=== PATIENT | female | born 1975 | race Caucasian/White ===

== ENCOUNTER 2020-01-13 15:50 | Outpatient (REF) | payer OTHER, SELFPAY ==
[2020-01-14 16:48] LABS: CT PCR NOT DETECTED (Not Detect.); NG PCR NOT DETECTED (Not Detect.)
[2020-01-15 08:45] LABS: BV Int Neg Control Negative (Negative); BV Int Pos Control Positive (Positive)
== END 2020-01-13 15:51 | disposition home or self-care (01) ==
LOC: HO.LAB 15:50
PROVIDERS: Visit Provider Obstetrics & Gynecology
DX: N89.8 Other specified noninflammatory disorders of vagina (principal); R10.2 Pelvic and perineal pain
CPT/HCPCS: 87480; 87491; 87510; 87591; 87660; 99212

== ENCOUNTER 2022-02-22 11:08 | Outpatient (REF) | payer OTHER, SELFPAY ==
--- NOTE | ~2022-02-22 | US_ITS ---
EXAMINATION: US ABDOMEN COMPLETE CLINICAL INFORMATION: Nonalcoholic steatohepatitis. COMPARISON: MRI abdomen with and without contrast 03/13/2018. Ultrasound abdomen complete 01/14/2018. X-ray abdomen KUB 11/08/2016. Ultrasound abdomen limited 07/23/2012. TECHNIQUE: Real-time imaging of the abdominal viscera. FINDINGS: PANCREAS: No abnormal mass or peripancreatic inflammatory change. ABDOMINAL AORTA: The proximal, mid, and distal segments are normal in caliber. INFERIOR VENA CAVA: Visualized portions are normal. LIVER: The liver is normal in size. There is a hyperechoic and heterogeneous appearance to the hepatic parenchyma consistent with fatty infiltration/cirrhosis. Within the left lobe of liver there is a hypoechoic mass measuring 2.8 x 1.0 x 2.8 cm in size. There is no intrahepatic biliary duct dilatation seen. GALLBLADDER: Normal. The gallbladder is physiologically distended without evidence of stones, sludge, polyps, wall thickening or pericholecystic fluid. COMMON BILE DUCT: Normal in caliber measuring 0.2 cm in diameter. RIGHT KIDNEY: Within the midpole region there is a 3 mm echogenic focus without ringdown artifact which could represent a nonobstructing calculus versus possible vessel interface or calcified vessel. Within the lower pole there is a 4 mm echogenic focus which may represent a calcified vessel with appearance of some tram tracking and central vascular flow. No hydronephrosis. The kidney measures 11.2 cm in maximum dimension. LEFT KIDNEY: Within the lower pole there is a 4 mm region of increased echotexture which may be related to nonobstructing calculus or a vessel interface. No hydronephrosis. The kidney measures 11.5 cm in maximum dimension. SPLEEN: Enlarged. The spleen measures 13.5 cm in maximum dimension. FREE FLUID: None. ADDITIONAL FINDINGS: There is again noted to be a solid appearing left adrenal gland mass measuring 2.2 x 2.6 x 2.6 cm in size and essentially stable in appearance to previous MRI of 03/13/2018. US/US abdomen complete IMPRESSION: Hepatic mass within the left lobe measuring 2.8 cm in largest dimension, which appears solid and not cystic. In a patient with fatty infiltration of the liver with question cirrhosis a hepatoma cannot be excluded. MRI could be of help in further evaluation. Stable left adrenal gland nodule.
== END 2022-02-22 11:09 | disposition home or self-care (01) ==
LOC: HO.US 11:08
PROVIDERS: Visit Provider Internal Medicine
DX: K75.81 Nonalcoholic steatohepatitis (NASH) (principal)
CPT/HCPCS: 76700

== ENCOUNTER 2022-09-13 10:04 | Outpatient (REF) | payer OTHER, SELFPAY ==
[2022-09-14 13:32] LABS: BV Int Neg Control Negative (Negative); BV Int Pos Control Positive (Positive)
[2022-09-16 05:34] LABS: HPV mRNA E6/E7 rflx Not Detected (Not Detected)
== END 2022-09-13 10:05 | disposition home or self-care (01) ==
LOC: HO.LNP 10:04
PROVIDERS: PCP Internal Medicine; Visit Provider Advanced Practice Midwife
DX: Z01.419 Encounter for gynecological examination (general) (routine) without abnormal findings (principal); N88.8 Other specified noninflammatory disorders of cervix uteri; Z79.899 Other long term (current) drug therapy; Z87.42 Personal history of other diseases of the female genital tract; Z90.711 Acquired absence of uterus with remaining cervical stump; Z90.79 Acquired absence of other genital organ(s); Z90.721 Acquired absence of ovaries, unilateral; Z86.39 Personal history of other endocrine, nutritional and metabolic disease
CPT/HCPCS: 0353U; 87480; 87510; 87624; 87660; 88142

== ENCOUNTER 2022-10-18 08:37 | Outpatient (REF) | payer OTHER, SELFPAY ==
--- NOTE | ~2022-10-18 | MM_ITS ---
EXAMINATION: MM SCREENING DIGITAL BREAST TOMOSYNTHESIS, BILATERAL CLINICAL INFORMATION: Screening. Asymptomatic. The lifetime risk of breast cancer based on the Tyrer-Cuzick Model is 8.2%. COMPARISON: Mammography: 01/14/2018 TECHNIQUE: Digital breast tomosynthesis is performed in both the craniocaudal and mediolateral oblique views along with computer-aided detection (CAD). Synthesized 2D images are generated from the tomosynthesis. FINDINGS: The breasts are heterogeneously dense, which may obscure small masses (ACR BI-RADS breast composition Category c). There are numerous bilateral circumscribed oval isodense masses in both breasts, consistent with multiple benign cysts or fibroadenomas. There are no suspicious masses, suspicious grouped calcifications, or areas of architectural distortion. The parenchymal pattern is stable from prior exams. MM/MM tomosynthesis screening BI IMPRESSION: No mammographic evidence of malignancy in either breast. Multiple circumscribed bilateral isodense masses consistent with multiple cysts or fibroadenomas. These findings are benign. ASSESSMENT: BI-RADS BI-RADS 2 - Benign Findings RECOMMENDATION: Routine annual mammography screening. 1 year F/U This examination should not preclude the clinical evaluation of a suspicious palpable abnormality. This patient's information was entered into a reminder system with a target due date for their next mammogram.
== END 2022-10-18 08:38 | disposition home or self-care (01) ==
LOC: HO.MAMMO 08:37
PROVIDERS: PCP Internal Medicine; Visit Provider Advanced Practice Midwife
DX: Z12.31 Encounter for screening mammogram for malignant neoplasm of breast (principal)
CPT/HCPCS: 77063; 77067

== ENCOUNTER → 2022-10-18 09:00 | Outpatient (BNV) | payer OTHER, SELFPAY | PROVIDERS: PCP Internal Medicine; Visit Provider Radiology Diagnostic Radiology | DX: Z12.31 Encounter for screening mammogram for malignant neoplasm of breast (principal) | CPT/HCPCS: 77063; 77067 ==

== ENCOUNTER 2023-04-18 09:50 | Outpatient (REF) | payer OTHER, SELFPAY ==
[2023-04-18 13:01] LABS: Anion Gap 10 (12-20); Blood Urea Nitrogen 11 mg/dL (9-16); Calcium 9.7 mg/dL (8.4-10.2); Carbon Dioxide 24 mmol/L (22-29); Chloride 106 mmol/L (96-108); Estimated Glomerular Filt Rate > 60; Glucose Random 94 mg/dL (60-115); Potassium 4.4 mmol/L (3.3-5.1); Sodium 136 mmol/L (135-145)
== END 2023-04-18 09:51 | disposition home or self-care (01) ==
LOC: HO.HHCL 09:50
PROVIDERS: Visit Provider Internal Medicine
DX: R53.83 Other fatigue (principal)
CPT/HCPCS: 36415; 80048; 84443

== ENCOUNTER 2023-05-16 10:18 | Outpatient (REF) | payer OTHER, SELFPAY ==
[2023-05-16 12:43] LABS: Alanine Aminotransferase 56 U/L (0-31); Albumin Level 4.4 g/dL (3.5-5.0); Alkaline Phosphatase 72 U/L (39-117); Aspartate Amino Transferase 39 U/L (5-31); Bilirubin Direct 0.1 mg/dL (0.0-0.5); Bilirubin Total 0.4 mg/dL (0.0-1.0); Cholesterol 231 mg/dL (<200); HDL Cholesterol 57 mg/dL (>40); LDL Cholesterol Calculated 139 mg/dL (<100); Total Protein 7.9 g/dL (6.5-8.0); Triglycerides 177 mg/dL (<150)
== END 2023-05-16 10:19 | disposition home or self-care (01) ==
LOC: HO.HHCL 10:18
PROVIDERS: Visit Provider Internal Medicine
DX: R53.83 Other fatigue (principal)
CPT/HCPCS: 36415; 80061; 80076

== ENCOUNTER 2024-10-22 11:53 | Outpatient (REF) | payer OTHER, SELFPAY ==
--- OUTSIDE RECORDS SUMMARY | 2024-10-22 12:45 | XMS_ITS | Encounter Summary ---
Author Organization [facility] Address [address] [place] [address] [address] [place] [address] Care Team Providers Care Rn Circulating Name Role Phone Irene Neumann MD Primary Care Provide r Reason for Visit * Reason Comments Med Refill Encounter Details Date Type Department Care Team ([facility] Contact Info) Description 10/17/2022 Refill [facility] [address] [place] [address] Areli Drake FNP [address] [place] [address] Other specified hypothyroidism Social History Tobacco Use Types Packs/Day Years Used Date Smoking Tobacco: Never Smokeless Tobacco: Never Depression Answer Date Recorded Patient Health Questionnaire-9 Score 7 09/26/2022 Depression Answer Date Recorded Patient Health Questionnaire-2 Score 2 09/26/2022 Comments Unknown Sex and Gender Information Value Date Recorded Sex Assigned at Female 01/09/2022 10:16 AM EDT Legal Sex Female 10:16 AM EDT Gender Identity Female 09/20/2022 8:07 AM EDT Sexual Orientation Straight 01/09/2022 10 :16 AM EDT COVID-19 Exposure Response Date Recorded In the last 10 days, have yo u been in contact with someone who was confirmed or suspected to have Coronavirus/COVID-19? No / Unsure 09/20/2022 7:54 AM EDT documented as of this encounter Plan of Treatment Upcoming Encounters Date Type Department Care Team ([facility] Contact Info) Description 12/17/2024 9:15 AM EDT Office Visit [facility] [address] [place] [address] Irene Neumann MD [address] [place] [address] 03/04/2025 10:00 AM EST Office Visit [facility] OPTOM[facility]RY [address] [place] [address] Scott, Ly, OD [address] [place] [address] 03/18/2025 8:00 AM EST Office Visit [facility] ADULT DENTAL [address] [place] [address] Caitlyn, Chanell [address] [place] [address] documented as of this encounter Visit Diagnoses Diagnosis Other specified hypothyroidism documented in this encounter Additional Health Concerns Assessment Noted Time PHQ-9 Depression Total Score: 7 09/27/19 23 2:42 PM EDT documented as of this encounter Care Teams Rn Circulating Relationship Specialty Start Date End Date Irene Neumann MD [address] [place] [address] PCP - General Family Medicine 11/21/17 documented as of this encounter
[2024-10-22 13:36] LABS: MANUAL DIFF FLAG NO
[2024-10-22 13:43] LABS: Hematocrit 38.9 % (37.0-47.0); Hemoglobin 12.5 g/dl (12.0-16.0); Imm Gran Abs Auto 0.03 X10*3/uL (0.00-0.03); Imm Gran Pct Auto 0.6 % (0.0-0.4); Lymphocytes Absolute Auto 1.6 X10*3/uL (1.2-4.9); Mean Corpuscular HGB Conc 32.1 g/dl (31.0-35.0); Mean Corpuscular Hemoglobin 28.5 pg (27.0-33.0); Mean Corpuscular Volume 88.8 fL (80.0-98.0); NRBC Abs Auto 0.000 X10*3/uL (0.0-0.012); NRBC Pct Auto 0.0 /100WBC (0.0-0.2); Platelet Count 156 X10*3/uL (160-400); Red Blood Count 4.38 X10*6/uL (4.20-5.50); White Blood Count 5.5 X10*3/uL (4.8-10.8)
[2024-10-22 14:21] LABS: Alanine Aminotransferase 84 U/L (0-31); Albumin Level 4.2 g/dL (3.5-5.0); Alkaline Phosphatase 72 U/L (39-117); Anion Gap 12 (12-20); Aspartate Amino Transferase 56 U/L (5-31); Blood Urea Nitrogen 16 mg/dL (9-16); Calcium 9.1 mg/dL (8.4-10.2); Carbon Dioxide 27 mmol/L (22-29); Chloride 104 mmol/L (96-108); Cholesterol 241 mg/dL (<200); Estimated Glomerular Filt Rate > 60; HDL Cholesterol 74 mg/dL (>40); Potassium 4.5 mmol/L (3.3-5.1); Sodium 138 mmol/L (135-145); Total Protein 7.5 g/dL (6.5-8.0); Triglycerides 81 mg/dL (<150)
[2024-10-23 04:08] LABS: HIV Num 1 0.05 S/CO (0.00-0.99); ~HepC Num1 0.09 S/CO (0.00-0.79); ~Hepatitis C Antibody Nonreactive (Nonreactive)
== END 2024-10-22 11:54 | disposition home or self-care (01) ==
LOC: HO.HHCL 11:53
PROVIDERS: PCP Internal Medicine; Visit Provider Internal Medicine
DX: Z12.11 Encounter for screening for malignant neoplasm of colon (principal); Z11.59 Encounter for screening for other viral diseases; Z11.4 Encounter for screening for human immunodeficiency virus [HIV]; E66.811 Obesity, class 1; Z68.31 Body mass index [BMI] 31.0-31.9, adult
CPT/HCPCS: 36415; 80053; 80061; 82306; 84443; 85025; 86803; 87389

== ENCOUNTER 2024-12-31 10:36 | Outpatient (REF) | payer OTHER, SELFPAY ==
--- NOTE | ~2024-12-31 | US_ITS ---
EXAMINATION: US COMPLETE ABDOMEN WITH LIVER ELASTOGRAPHY CLINICAL INFORMATION: Persistent elevated LFTs COMPARISON: February 22, 2022 ultrasound and MRI March 13, 2018 TECHNIQUE: Real-time imaging of the abdominal viscera. Noninvasive ultrasound liver fibrosis assessment is performed using Daisha ElastPQ point quantification shear wave elastography (pSWE) with a C5-2 MHz transducer. Multiple elastography samples are obtained. FINDINGS: PANCREAS: The visualized pancreatic head and body are normal in appearance. The remainder of the pancreas is obscured from visualization by the overlying bowel gas. ABDOMINAL AORTA: No aortic aneurysm is seen. INFERIOR VENA CAVA: Visualized portions are normal. LIVER: There is a circumscribed hypoechoic lesion without increased through transmission within the left lateral segment of the liver measuring 2.3 x 1.2 x 2.2 cm, previously 2.8 x 1.0 x 2.8 cm. Otherwise, the liver has a coarse echotexture and is mildly hyperechoic. The right lobe measures 15 cm in length. The left lobe measures 8 cm in length. The main portal vein is patent with normal directional flow and a continuous venous waveform. Shear wave liver elastography median stiffness is 1.7 m/s (reference: normal median stiffness is 1.3 m/s or less). IQR/median stiffness to assess sampling precision is 0.04 (reference: good quality data set is IQR/median stiffness of 0.15 or less). GALLBLADDER: The gallbladder is physiologically distended without evidence of stones, sludge, polyps, wall thickening or pericholecystic fluid. COMMON BILE DUCT: Normal in caliber measuring 0.3 cm in diameter. RIGHT KIDNEY: No hydronephrosis. No renal calculi or focal parenchymal lesions. The kidney measures 11 cm in maximum dimension. LEFT KIDNEY: No hydronephrosis. No focal parenchymal lesions were demonstrated. There is a 3 mm echogenic focus with posterior acoustic shadowing in the lower pole consistent with a stone. There is a second measures area in the lower pole measuring 3 x 6 mm without posterior acoustic shadowing likely representing echogenic hilar fat. The kidney measures 11.5 cm in maximum dimension. There is a hypoechoic suprarenal mass measuring 3.1 x 2.2 x 2.7 cm that was present on prior MRI and ultrasound that was previously demonstrated represent a lipid rich adrenal adenoma. On prior MRI, it measures 2.5 x 2.0 x 2.4 cm. SPLEEN: Unremarkable. The spleen measures 12.6 cm in maximum dimension. FREE FLUID: None seen. US/US abdomen comp w elastography IMPRESSION: 1. There is a coarsely echogenic liver consistent with hepatic steatosis and/or underlying hepatic parenchymal disease. There is a focal hypoechoic lesion in the left lobe that could represent focal sparing or a solid mass. Follow-up MRI liver without and with IV contrast. It was not adequately demonstrated on MRI March 13, 2018. 2. Liver elastography: Measurements are suggestive of compensated advanced chroniic liver disease but need further test for confirmation. Median stiffness measures 1.7 m/s. Study quality was good. Enlarging left lipid rich adrenal adenoma. 3 mm stone is present in the lower left kidney. REFERENCE: Society of Radiologists in Ultrasound Liver Stiffness Thresholds (2020): LIVER STIFFNESS THRESHOLDS: *Liver Stiffness equal or less than 1.3 m/s: High probability of being normal. *Liver Stiffness less than 1.7 m/s: In the absence of other known clinical signs, rules out compensated advanced chronic liver disease. *Liver Stiffness 1.7-2.1 m/s: Suggestive of compensated advanced chronic liver disease but need further test for confirmation. *Liver Stiffness over 2.1 m/s: Rules in compensated advanced chronic liver disease. *Liver Stiffness over 2.4 m/s: Suggestive of clinically significant portal hypertension. QUALITY OF DATA SET: *IQR/Median value equal or less than 0.15 implies a quality data set. *IQR/Median value over 0.15 implies a poor quality data set. SIGNIFICANT CHANGE FROM PRIOR EXAM: Significant change if liver stiffness measurement is 10% or greater from prior exam. OTHER CONSIDERATIONS: The stage of liver fibrosis may be overestimated in the setting of acute hepatitis, liver inflammation, elevated liver function tests, hepatic vascular congestion, obstructive cholestasis, non-fasting state, and infiltrative diseases such as amyloidosis and lymphoma. In some patients with NAFLD, the liver stiffness thresholds for compensated advanced chronic liver disease may be lower. In causes other than viral hepatitis and NAFLD, liver stiffness thresholds are not well established. Electronically signed by: Michael Cook MD 12/31/2024 02:28 PM EDT
--- OUTSIDE RECORDS SUMMARY | 2024-12-31 13:32 | XMS_ITS | Encounter Summary ---
Author Organization [facility] Address [address] [place] [address] [address] [place] [address] Care Team Providers Care Wrap Turner Name Role Phone Irene Neumann MD Primary Care Provide r Encounter Details Date Type Department Care Team (Late Contact Info) Description 02/28/2022 Orders Only [facility] [address] [place] [phone] Sherly Snider MD [address] [place] [phone] Liver mass, left lobe (Primary Dx) Social History Tobacco Use Types Packs/Day Years Used Date Smoking Tobacco: Never Assessed Comments Unknown Sex and Gender Information Value Date Recorded Sex Assigned at Female 01/09/2022 10:16 AM EDT Legal Sex Female 10:16 AM EDT Gender Identity Female 09/20/2022 8:07 AM EDT Sexual Orientation Straight 01/09/2022 10 :16 AM EDT documented as of this encounter Plan of Treatment Upcoming Encounters Date Type Department Care Team (Late Contact Info) Description 02/25/2025 10:30 AM EST Office Visit [facility] [address] [place] [address] Irene Neumann MD [address] [place] [address] 03/04/2025 10:00 AM EST Office Visit [facility] OPTOMETRY [address] [place] [address] Ly Chavez, OD [address] [place] [address] 03/18/2025 8:00 AM EST Office Visit [facility] AD[facility] DENTAL [address] [place], [place] [phone] Chanell Brady [address] [place] [address] Scheduled Orders Name Type Priority Associated Diagnoses Orde r Schedule MR Liver w and w/o Contrast Imaging Routine Liver mass, left lobe Expected: 02/28/2022, Expires: 02/28/2023 documented as of this encounter Visit Diagnoses Diagnosis Liver mass, left lobe- Primary Unspecified disorder of liver documented in this encounter Care Teams Wrap Turner Relationship Specialty Start Date End Date Irene Neumann MD [address] [place] [address] PCP - General Family Medicine 11/21/17 documented as of this encounter
--- OUTSIDE RECORDS SUMMARY | 2024-12-31 13:32 | XMS_ITS | Clinical Summary ---
Author Organization [employer] Address [address] [place] [address] [address]t h Floor [place] [id number] Care Team Providers Care Hand Former Helper Name Role Phone Irene Neumann MD Primary Care Provide r Allergies No known active allergies Medications Fluocinolone Acetonide Scalp (Decker-Smoothe/FS Scalp) 0.01 % oilIndications:Pso riasis Apply on damp scalp nightly 118.28 mL 1 09/23/19 23 Active metFORMIN (Glucophage) 500 MG tablet TAKE 1 TABLET BY MOUTH TWICE DAILY WITH MEALS IN THE MORNING AND IN THE EVENING 05/20/19 23 Active metroNIDAZOLE (Metrogel) 0.75 % vaginal gel INSERT 1 APPLICATORFUL VAGINALLY AT BEDTIME FOR 5 DAYS 09/16/19 23 Active Vitamin D High Potency 25 MCG (1000 UT) capsule TAKE 1 CAPSULE BY MOUTH EVERY DAY 30 capsule 4 11/10/19 23 Active Clobetasol Propionate (Clobex) 0.05 % shampoo Use as directed by physician 118 mL 11 12/05/19 23 Active Fluocinolone Acetonide 0.01 % shampoo Use shampoo three times weekly. 120 mL 1 12/26/19 23 Active ketoconazole (NIZOral) 2 % shampooIndications :Psoriasis APPLY TOPICALLY TWICE A WEEK 120 mL 1 05/01/19 24 Active omeprazole (PriLOSEC) [address] capsule TAKE 1 CAPSULE BY MOUTH EVERY DAY BEFORE A MEAL 90 capsule 1 06/27/19 24 Active olmesartan (Benicar) 20 MG tabletIndications: Primary hypertension Take 1 tablet (20 mg) by mouth Once per day. 30 tablet 2 06/12/19 25 026 Active levothyroxine (Synthroid, Levoxyl) 25 MCG tabletIndications: Other specified hypothyroidism TAKE 1 TABLET BY MOUTH EVERY DAY IN THE MORNING 90 tablet 1 07/08/19 25 Active ibuprofen 800 MG tablet TAKE 1 TABLET BY MOUTH THREE TIMES DAILY WITH FOOD 30 tablet 3 09/04/19 25 Active Tirzepatide-Weight Management (Zepbound) 2.5 MG/0.5ML solution auto-injectorIndic ations:Class 1 obesity due to excess calories with serious comorbidity and body mass index (BMI) of 34.0 to 34.9 in adult Inject 0.5 mL (2.5 mg) under the skin 1 (one) time per week. 2 mL 10/17/19 25 Active cholecalciferol (Vitamin D-3) 25 MCG (1000 UT) tabletIndications: Vitamin D deficiency Take 1 tablet (25 mcg) by mouth Once per day. 60 tablet 10/26/19 25 Active Active Problems Problem Noted Date Diagnosed Date Class 1 obesity due to exces s calories with body mass index (BMI) of 34.0 to 34.9 in adult 10/16/2024 Assessment & Plan (10/16/2024 3:41 PM EDT): Today extensive discussion was done about life style modifications I advise healthy diet (low calorie) and cardiovascular exercise Patient has being on phentermine 37.5mg for 5 months, she is not losing weight anymore and in contrary she is gaining weight for this reason I will start her on zepbound 2.5mg medication side effect and contraindications where reviewed, plan is to follow her in 4-6 weeks for weigh and medication side effect monitoring Dental plaque 09/03/2024 Primary hypertension 08/08/2023 Assessment & Plan (10/16/2024 3:38 PM EDT): I advised: - Aerobic exercise to reduce BP. Initial goal of 30 min walk 3-5x/week. Increase as tolerated. - low-sodium diet (goal: <2g/day) and heart healthy diet such as DASH to reduce BP and prevent ASCVD. - Home BP monitoring 1-2 x day with goal of <140/90. - Seek immediate medical attention for chest pain, palpitations, SOB, syncope, or sudden changes in mental status. - Do not change or discontinue current prescriptions without first consulting health care provider Assessment & Plan (06/11/2024 2:50 PM EDT): I advised low-sodium diet and weight reduction, I decided to discontinue her amlodipine and put her on instead on olmesartan 20 mg daily, I advised to come back for nurse visit for blood pressure check in 2 weeks with log plan is if blood pressure is out of goal (more than 140/90) to increase the dose of olmesartan Assessment & Plan (08/08/2023 11:36 AM EDT): I have seen her BP consistently high on previous charts I will start her on amlodipine 2.5mg daily, I advise weight reduction and low Na diet Class 1 obesity due to exces s calories with serious comorbidity and body mass index (BMI) of 31.0 to 31.9 in adult 08/08/2023 Assessment & Plan (06/11/2024 2:51 PM EDT): Extensive counseling on healthy diet and exercise done today I will restart patient on phentermine 37.5 mg daily but I let her know first with me to control her blood pressure before starting this medication she agrees with the plan, she already knows side effects of this medication that she has been before Assessment & Plan (08/08/2023 11:37 AM EDT): Today extensive discussion was done about life style modifications I advise healthy diet (low calorie) and cardiovascular exercise I will start her again on phentiramine 37.5mg Encounter for screening mamm ogram for malignant neoplasm of breast 08/08/2023 Fatigue 04/18/2023 Assessment & Plan (04/18/2023 1:28 PM EST): TSH will be check Maintain hydration, I advise cardiovascular exercise Colon cancer screening 04/18/2023 Acquired hypothyroidism 09/26/2022 Assessment & Plan (09/26/2022 3:18 PM EDT): TSH recently check continue with same levothyroxine dose Dyslipidemia 09/26/2022 Psoriasis 09/22/2022 Assessment & Plan (09/22/2022 9:16 AM EDT): DermaSmoothie FS SCalp oil applied to damp scalp at bedtime. She will wash out with Ketoconazole shampoo in the AM ; Will do this nightly for one-week then once to twice weekly for maintenance. Return to the Clinic as needed. Elevated blood pressure reading 08/23/2022 Heartburn 08/23/2022 Pruritus of vagina 08/23/2022 Severe obesity (CMS/HCC) 08/23/2022 Type 2 diabetes mellitus without complication Assessment & Plan (10/16/2024 3:42 PM EDT): Diabetes is: controlled - Lab Results Component Value Date HGBA1C 5.9 06/11/2024 HGBA1C 5.6 04/18/2023 HGBA1C 5.4 08/23/2022 - Lab Results Component Value Date MICROALBUR 0.4 04/05/2020 CREATININE 0.67 04/18/2023 - Diabetic eye exam:up to date - Diabetic foot exam:pending - Continue lifestyle modifications - Continue current medications - Follow up: 3 months Assessment & Plan (08/08/2023 11:38 AM EDT): Diabetes is: controlled - Lab Results Component Value Date HGBA1C 5.6 04/18/2023 HGBA1C 5.4 08/23/2022 HGBA1C 5.8 (H) 12/29/2020 - Lab Results Component Value Date MICROALBUR 0.4 04/05/2020 CREATININE 0.67 04/18/2023 -Changes: none - Follow up: 3 months Assessment & Plan (04/18/2023 1:27 PM EST): - Lab Results Component Value Date HGBA1C 5.6 04/18/2023 HGBA1C 5.4 08/23/2022 HGBA1C 5.8 (H) 12/29/2020 - Lab Results Component Value Date MICROALBUR 0.4 04/05/2020 CREATININE 0.67 04/18/2023 - Diabetic eye exam:up to date - Diabetic foot exam:pending - Continue lifestyle modifications - Continue current medications Assessment & Plan (09/26/2022 3:17 PM EDT): Not on medications anymore I will continue to monitor A1c every 6 months Assessment & Plan (08/23/2022 9:42 AM EDT): - Lab Results Component Value Date HGBA1C 5.8 (H) 12/29/2020 HGBA1C 5.7 (H) 04/05/2020 HGBA1C 5.9 (H) 10/13/2019 HGBA1C 5.9 (H) 10/13/2019 HGBA1C 5.9 (H) 10/13/2019 - Lab Results Component Value Date MICROALBUR 0.4 04/05/2020 - Diabetic eye exam: referral today - Diabetic foot exam: pending - Continue lifestyle modifications - I discontinue metformin a1c today 5.4% Normal oral exam 08/23/2022 Assessment & Plan (08/23/2022 9:43 AM EDT): Patient schedule for PAP Seborrheic dermatitis 08/23/2022 Cyst of ovary 01/30/2017 Migraine 01/30/2017 Assessment & Plan (10/16/2024 3:41 PM EDT): I advise to avoid migraine triggers like red wine, chocolate, cheese, strong perfumes C/w ibuprofen PRN Assessment & Plan (08/23/2022 9:42 AM EDT): Controlled continue with same interventions Mixed hyperlipidemia 01/30/2017 Mood disorder 01/30/2017 Nonalcoholic steatohepatitis 01/30/2017 Assessment & Plan (09/26/2022 3:17 PM EDT): Today extensive discussion was done about life style modifications I advise healthy diet (low calorie) and cardiovascular exercise Encounters Date Type Department Care Team Description 10/25/2024 Orders Only [facility] [address] [place] [address] Irene Neumann MD Elevated LFTs (Primary Dx); Steatosis of liver 10/25/2024 Results Follow-Up [facility] [address] [place] [address] Irene Neumann MD CBC auto differential, Comprehensive Metabolic Panel, HIV-1/2 Antigen and Antibodies, Fourth Generation, with Reflexes, Additional followed-up results: 4 10/16/2024 1:00 PM EDT Office Visit [facility] [address] [place] [address] Irene Neumann MD Primary hypertension (Primary Dx); Class 1 obesity due to excess calories with serious comorbidity and body mass index (BMI) of 34.0 to 34.9 in adult; Type 2 diabetes mellitus without complication, without long-term current use of insulin (CMS/HCC); Migraine without aura and without status migrainosus, not intractable; Dietary counseling; Exercise counseling 10/16/2024 Travel 10/08/2024 Patient Outreach [facility] [address] [place] [address] Irene Neumann MD Pre-visit Planning ([facility] screening completed on 06/11/2024) from Last 3 Months Immunizations Immunization Administration Dates Next Due Hep B, adult 08/25/2010,04/05/2010,11/04/2009 Influenza injectable quadriv alent IIV4 with preservative 05/07/2019,01/02/2018 Influenza injectable quadriv alent preservative free 04/18/2023,01/12/2021,03/16/2020 Influenza, IIV3, injectable 11/04/2009 Influenza, Split (incl. betty fied surface antigen) 05/19/2013,11/28/2011 Pfizer Covid-19 Vaccine 12+ 04/18/2023 Pneumococcal Conjugate PCV 20 08/08/2023 Tdap 04/02/2012 Social History Tobacco Use Types Packs/Day Years Used Date Smoking Tobacco: Never Passive Smoke Exposure: Never Smokeless Tobacco: Never Tobacco Cessation:Counseling Given: Not Answered Alcohol Use Standard Drinks/Week Comments Never 0 (1 standard drink = 0.6 oz pur e alcohol) Depression Answer Date Recorded Patient Health Questionnaire-9 Score 0 10/16/2024 Patient Health Questionnaire-9 Score 0 10/16/2024 Last PHQ-9: Questionnaire Data Not on file 0 10/16/2024 Housing Stability Answer Date Recorded What is your housing situation today? I have danis alfonso 06/11/[address] you li ve. Do you have problems with any of the following? None of the above 06/11/2024 Food Insecurity Answer Date Recorded Within the past 12 months, y ou worried that your food would run out before you got money to buy more: Never True 06/11/2024 Within the past 12 months,th e food you bought just didn't last and you didn't have enough money to get more: Never True 04/2024 Transportation Answer Date Recorded In the past 12 months, has l ack of transportation kept you from medical appts, meetings, work or from getting things needed for daily living? No 06/11/2024 Utilities Answer Date Recorded In the past 12 months, has t he electric, gas, oil or water company threatened to shut off services in your home? No 06/11/2024 Depression Answer Date Recorded Patient Health Questionnaire-2 Score 0 10/16/2024 Internet Access Answer Date Recorded Internet Access Q1 Yes 06/11/2024 Internet Access Q2 Not on file 06/11/2024 Comments Unknown Sex and Gender Information Value Date Recorded Sex Assigned at Female 01/09/2022 10:16 AM EDT Legal Sex Female 10:16 AM EDT Gender Identity Female 09/20/2022 8:07 AM EDT Sexual Orientation Straight 01/09/2022 10 :16 AM EDT Last Filed Vital Signs Vital Sign Reading Time Taken Comments Blood Pressure 132/80 10/16/2024 1:09 PM EDT Pulse 86 10/16/2024 1:09 PM EDT Temperature 36.1 C (97 F) 10/16/2024 1:09 PM EDT Respiratory Rate 20 10/16/2024 1:09 PM EDT Oxygen Saturation 99% 06/11/2024 10:02 AM EDT Inhaled Oxygen Concentration - - Weight 85.3 kg (188 lb) 10/16/2024 1:09 PM EDT Height 157.5 cm (5' 2 ) 10/16/2024 1:09 PM EDT Body Mass Index 34.39 10/16/2024 1:09 PM EDT Plan of Treatment Upcoming Encounters Date Type Department Care Team (Late st Contact Info) Description 02/25/2025 10:30 AM EST Office Visit [facility] [address] [place] [address] Irene Neumann MD [address] [place] [address] 03/04/2025 10:00 AM EST Office Visit [facility] OPTOMET[facility] [address] [place] [address] Scott, Ly, OD [address] [place] [address] 03/18/2025 8:00 AM EST Office Visit [facility] ADULT DENTAL [address] [place] [address] Tyler Bradyaris [address] [place] [address] Health Maintenance Due Date Last Done Comments CT Colonography 1977 Colonoscopy 1977 Colorectal Cancer Screening 1977 FIT DNA/Cologuard 1977 FIT 1977 FOBT 1977 Sigmoidoscopy 1977 Diabetes: Foot Exam 1987 Family Planning (PISQ) 1992 Hepatitis A Vaccines (1 of 2 - Risk 2-dose series) 1996 Mammogram 01/16/2020 01/15/2018 Diabetes: Urine Protein Screening 04/05/2021 04/05/2020, 10/13/2019 Dental X-Ray: Bitewings 10/24/2024 10/24/19, 09/20/2022, 11/08/2021, Additional history exists IPV Vaccines (2 of 3 - Adult catch-up series) 10/30/2024 10/02/2024 Influenza Vaccine (#1) 2024 , 04/18/2023, 01/12/2021, Additional history exists Dental Oral Exam 03/06/2025 09/03/2024, , 10/24/2023, Additional history exists Dental Prophylaxis 03/06/2025 09/03/2024, 0 10/24/2023, 10/04/2022, Additional history exists Diabetes: Hemoglobin A1C 06/11/2025 025, 04/18/2023, 08/23/2022, Additional history exists Disability Screening 06/11/2025 06/11/2024 SDOH Screening 06/11/2025 06/11/2024 Dental X-Ray: Full Mouth 09/21/2025 023, 03/26/2018, 10/27/2014, Additional history exists Eye Exam 10/02/2025 10/03/2023, 09/10, 10/03/2023, Additional history exists Alcohol/Substance Use Screening 10/16/2025 10/16/2024 Depression Screening 10/16/2025 10/16/2024, 10/17/19 25 Tobacco Screening 10/16/2025 10/16/2024 Lipid Panel 10/22/2025 10/22/2024, 03/0 08/2023, 08/23/2022, Additional history exists Zoster Vaccines (1 of 2) 2027 Cervical Cancer Screening 09/14/2027 HPV/Cotest 09/14/2027 02/22/2018 Pap Smear 09/14/2027 09/13/2022 DTaP/Tdap/Td Vaccines (3 - Td or Tdap) 12/25/2033 12/26/2023, 04/02/2012 RSV Patients and Patients Aged 60 years or older (1 - 1-dose 75+ series) 2052 Hepatitis B Vaccines Completed 08/25/2010, 04/05/2010, 11/04/2009 Pneumococcal Vaccine: Pediatrics (0 to 5 Years) and At-Risk Patients (6 to 49) Years Completed 08/08/2023 COVID-19 Vaccine Completed 12/26/2023, 09/2023, 04/06/2021, Additional history exists HIV Screening Completed 10/22/2024 Hepatitis C Screening Completed 10/22/2024 HIB Vaccines Aged Out No longer eligi ble based on patient's age to complete this topic HPV Vaccines Aged Out No longer eligi ble based on patient's age to complete this topic Meningococcal B Vaccine Aged Out No l onger eligible based on patient's age to complete this topic Meningococcal Vaccine Aged Out No elder kenneth eligible based on patient's age to complete this topic RSV under 20 months Aged Out No longe r eligible based on patient's age to complete this topic Rotavirus Vaccines Aged Out No longer eligible based on patient's age to complete this topic Procedures Procedure Name Priority Date/Time Associated Diagnosis Comments TSH W/REFLEX TO FT4 Routine 10/22/2024 1 1:59 AM EDT Class 1 obesity due to excess calories with serious comorbidity and body mass index (BMI) of 31.0 to 31.9 in adult VITAMIN D,25-OH,TOTAL,IA Routine 10/22/2024 11:59 AM EDT Class 1 obesity due to excess calories with serious comorbidity and body mass index (BMI) of 31.0 to 31.9 in adult LIPID PANEL, STANDARD Routine 10/22/2024 11:59 AM EDT Class 1 obesity due to excess calories with serious comorbidity and body mass index (BMI) of 31.0 to 31.9 in adult HEPATITIS C AB W/REFL TO HCV RNA, QN, PCR Routine 10/22/2024 11:59 AM EDT Class 1 obesity due to excess calories with serious comorbidity and body mass index (BMI) of 31.0 to 31.9 in adult HIV 1/2 ANTIGEN/ANTIBODY, FOURTH GENERATION W/RFL Routine 10/22/2024 11:59 AM EDT Class 1 obesity due to excess calories with serious comorbidity and body mass index (BMI) of 31.0 to 31.9 in adult COMPREHENSIVE METABOLIC PANEL Routine 10/22/2024 11:59 AM EDT Class 1 obesity due to excess calories with serious comorbidity and body mass index (BMI) of 31.0 to 31.9 in adult CBC WITH AUTO DIFFERENTIAL Routine 10/22/2024 11:59 AM EDT Class 1 obesity due to excess calories with serious comorbidity and body mass index (BMI) of 31.0 to 31.9 in adult PROPHYLAXIS - ADULT Routine 09/03/2024 1 1:00 AM EDT PERIODIC ORAL EVALUATION - ESTABLISHED PATIENT Routine 09/03/2024 11:00 AM EDT POCT GLYCATED HEMOGLOBIN, TOTAL Routine 06/11/2024 10:14 AM EDT Type 2 diabetes mellitus without complication, without long-term current use of insulin ([facility]) BITEWINGS - 4 RADIOGRAPHIC IMAGES Routine 10/24/2023 8:00 AM EDT Dental plaque INTRAORAL - COMPLETE SERIES OF RADIOGRAPHIC IMAGES Routine 09/20/2022 8:00 AM EDT Dental caries PAP SMEAR Routine 09/13/2022 10:51 AM EDT ALBUMIN, RANDOM URINE W/CREATININE Routine 04/05/2020 9:55 AM EST ZZZ HISTORICAL HPV MRNA E6/E7 Routine 02/22/2018 2:56 PM EST BI MAMMOGRAM SCREENING BILATERAL Routine 01/15/2018 7:10 PM EST from Last 3 Months or Most Recently Relevant to Health Maintenance Results * (ABNORMAL) Vitamin D, 25-Hydroxy, Total, Immunoassay (10/22/2024 11:59 AM EDT) Vitamin D 25-OH Total 15.7(L) >30 ng/mL [facility] Comment: Health Based Reference Values*< 20 ng/mL Pandresqn63-14 ng/mL Insufficient> 30 ng/mL Sufficient*Anastasiia SIERRA. N Engl J Med. 2007;357:266-280There is no well-established upper level of normal vitamin Dlevels. Some laboratories use 50 ng/mL as an upper limit ofnormal. However, toxicity is patient-dependent and may occurat any level. Careful correlation with the patient'spresentation is necessary and, if there is concern forvitamin D toxicity, treatment should be consideredirrespective of the serum level.Care must be taken in interpreting Vitamin D results fromdifferent laboratories and methodologies. Published datademonstrated that results from patients undergoinghemodialysis may show a negative bias when tested withvarious automated 25-OH vitamin D assays when compared toLC-MS/MS.When testing samples from patients whose predominant form ofVitamin D is Vitamin D2, such as patients receiving VitaminD2 supplementation, results that are subtherapeutic shouldbe confirmed with another method such as LC-MS/MS. Blood Venous blood specimen / Unknown 10/22/2024 11:59 AM EDT 10/22/2024 1:32 PM EDT us Irene Caldwell MD LAB BLOOD ORDERABLES Final Result Performing Organization Address City/[facility] Co de Phone Number [facility] [address] [place] [phone] * TSH with Reflex to Free T4 (10/22/2024 11:59 AM EDT) Pathologist [facility] TSH reflex Free T4 2.11 0.32 - 4.0 uIU/mL [facility] Blood Venous blood specimen / Unknown 10/22/2024 11:59 AM EDT 10/22/2024 1:32 PM EDT us Irene Caldwell MD LAB BLOOD ORDERABLES Final Result Performing Organization Address [facility] Co de Phone Number [facility] [address] [place] [phone] * (ABNORMAL) CBC auto differential (10/22/2024 11:59 AM EDT) White Blood Count 5.5 4.8 - 10.8 X10*3/uL [facility] Red Blood Count 4.38 4.20 - 5.50 X10*6/uL [facility] Hemoglobin 12.5 12.0 - 16.0 g/dl [facility] Hematocrit 38.9 37.0 - 47.0 % [facility] Mean Corpuscular Volume 88.8 80.0 - 98.0 fL [facility] Mean Corpuscular Hemoglobin 28.5 27.0 - 33.0 pg [facility] Mean Corpuscular HGB Conc 32.1 31.0 - 35.0 g/dl [facility] Red Cell Distribution Width 13.5 11.0 - 16.0 % [facility] Platelet Count 156(L) 160 - 400 X10*3/uL [facility] Mean Platelet Volume 11.1 9.4 - 12.3 fL [facility] Neutrophils Percent Auto 60.3 45 - 73 % [facility] Imm Gran Pct Auto 0.6(H) 0.0 - 0.4 % [facility] Lymphocytes Percent Auto 29.4 20 - 40 % [facility] Monocytes Percent Auto 7.3 2 - 11 % [facility] Eosinophils Percent Auto 1.8 0 - 4 % [facility] Basophils Percent Auto 0.6 0 - 2 % [facility] NRBC Pct Auto 0.0 0.0 - 0.2 /100WBC [facility] Neutrophils Absolute Auto 3.3 2.0 - 8.3 x10*3/uL [facility] Imm Gran Abs Auto 0.03 0.00 - 0.03 X10*3/uL [facility] Lymphocytes Absolute Auto 1.6 1.2 - 4.9 X10*3/uL [facility] Monocytes Absolute Auto 0.4 0.1 - 1.2 X10*3/uL [facility] Eosinophils Absolute Auto 0.1 0.0 - 0.4 X10*3/uL [facility] Basophils Absolute Auto 0.0 0.0 - 0.2 X10*3/uL [facility] NRBC Abs Auto 0.000 0.0 - 0.012 X10*3/uL [facility] Blood Venous blood specimen / Unknown 10/22/2024 11:59 AM EDT 10/22/2024 1:32 PM EDT us Irene Caldwell MD LAB BLOOD ORDERABLES Final Result [facility] [address] [place] [address] [phone] * Hepatitis C Antibody with Reflex to HCV, RNA, Quantitative, Real-Time PCR (10/22/2024 11:59 AM EDT) Hepatitis C Antibody Nonreactive Nonreactive [facility] Comment:Antibodies to HCV no t detected; does not exclude early acuteHCV infection. Blood Venous blood specimen / Unknown 10/22/2024 11:59 AM EDT 10/22/2024 1:32 PM EDT us Irene Caldwell MD LAB BLOOD ORDERABLES Final Result Performing Organization Address [facility]/ZIP Co de Phone Number [facility] [address] [place] [address] [phone] * HIV-1/2 Antigen and Antibodies, Fourth Generation, with Reflexes (10/22/2024 11:59 AM EDT) Pathologist [facility] HIV AB/AG Nonreactive Nonreactive [facility] Comment:HIV-1 p24 Ag and/or HIV-1/HIV-2 Ab not detected.A test result that is nonreactive does not exclude thepossibility of exposure to or infection with HIV-1 and/orHIV-2. Nonreactive results in this assay for individualswith prior exposure to HIV-1 and/or HIV-2 may be due toantigen and antibody levels that are below the limit ofdetection of this assay.The [employer] HIV Ag/Ab Combo assay result andsupplemental assay results should be interpreted inconjunction with the patient's clinical presentation,history and other laboratory results. If the results areinconsistent with clinical evidence, additional testing issuggested to confirm the result. Blood Venous blood specimen / Unknown 10/22/2024 11:59 AM EDT 10/22/2024 1:32 PM EDT us Irene Caldwell MD LAB BLOOD ORDERABLES Final Result Performing Organization Address [facility]/ZIP Co de Phone Number [facility] [address] [place] [address] [phone] * (ABNORMAL) Lipid Panel, Standard (10/22/2024 11:59 AM EDT) Triglycerides 81 <150 mg/dL [facility] Comment:Desirable Triglyceri de: less than 150 mg/dLBorderline High Triglyceride 150-199 mg/dLHigh Triglyceride: 200-499 mg/dLVery High Triglyceride: greater than or equal to 5OO mg/dL Cholesterol 241(H) <200 mg/dL [facility] Comment:Desirable Cholestero l: less than 200 mg/dLBorderline High Cholesterol: 200-239 mg/dLHigh Cholesterol: greater than 239 mg/dL LDL Cholesterol Calculated 151(H) <100 mg/dL [facility] Comment:Desirable LDL: less than 100 mg/dLNear Optimal/Above Optimal LDL: 110- 129 mg/dLBorderline High LDL: 130-159 mg/dLHigh LDL: 160-189 mg/dLVery High LDL: greater than or equal to 190 mg/dL HDL Cholesterol 74 >40 mg/dL [facility] Comment:Desirable HDL: great er than 40 mg/dL Note: This HDL assay may give artificially low results in patients with liver disease. Blood Venous blood specimen / Unknown 10/22/2024 11:59 AM EDT 10/22/2024 1:32 PM EDT us Irene Caldwell MD LAB BLOOD ORDERABLES Final Result [facility] [address] [place] [phone] * (ABNORMAL) Comprehensive Metabolic Panel (10/22/2024 11:59 AM EDT) Sodium 138 135 - 145 mmol/L [facility] Potassium 4.5 3.3 - 5.1 mmol/L [facility] Chloride 104 96 - 108 mmol/L [facility] Carbon Dioxide 27 22 - 29 mmol/L [facility] Anion Gap 12 12 - 20 [facility] Urea Nitrogen (BUN) 16 9 - 16 mg/dL [facility] Creatinine, Serum 0.55 0.5 - 1.4 mg/dL [facility] Estimated Glomerular Filt Rate >60 [facility] Comment:Chronic Kidney Disea se: Estimated GFR < 60 mL/min/1.59p0Jivsby Kidney Disease: Estimated GFR < 15 mL/min/1.73m2 Glucose 98 60 - 115 mg/dL [facility] Calcium 9.1 8.4 - 10.2 mg/dL [facility] Bilirubin, Total 0.4 0.0 - 1.0 mg/dL [facility] Aspartate Amino Transferase 56(H) 5 - 31 U/L [facility] Alanine Aminotransferase 84(H) 0 - 31 U/L [facility] Total Protein 7.5 6.5 - 8.0 g/dL [facility] Albumin Level 4.2 3.5 - 5.0 g/dL [facility] Alkaline Phosphatase 72 39 - 117 U/L [facility] Blood Venous blood specimen / Unknown 10/22/2024 11:59 AM EDT 10/22/2024 1:32 PM EDT us Irene Caldwell MD LAB BLOOD ORDERABLES Final Result Performing Organization Address City/State/[facility] Co de Phone Number [facility] [address] [place] [phone] * POCT HGB A1C (06/11/2024 10:14 AM EDT) Hemoglobin A1C 5.9 4.0 - 6.0 % QC Media Lot # [id number] Lot# Expiration Date Blood 06/11/2024 10:1 4 AM EDT us Irene Caldwell MD POINT OF CARE TEST EN TER/EDIT ORDERABLES Final Result * Pap Smear (09/13/2022 10:51 AM EDT) 09/13/2022 10:5 1 AM EDT 09/14/2022 8:15 AM EDT [facility] - 10/04/2022 8:13 AM EDT ----- ------- Name: BubbaIrene Morgan Age/Sex: 47/F : 1975 Unit#: [id number] Attend Dr: Liz Bailey CNM Re09/13/22 Status: DEP REF Location: [facility] Disch: ----- ------- SPEC : [id number] RECD: 09/14/22 STATUS: NONI VILLALOBOS NUM: [id number] SHARRI: 09/13/22-105 [facility] DR: Liz Bailey CNM ENTERED: 09/14/22 SP TYPE: Pap Smr OTHR DR: Irene Neumann MD ORDERED: Pap Smear Interpretation Satisfactory for evaluation. Moderate inflammation. Blood. Fungal organisms consistent with Demi species. Negative for intraepithelial lesion or malignancy. HPV mRNA E6/E7: NOT DETECTED This assay detects E6/E7 viral messenger RNA (mRNA) from 14 high-risk HPV types (16, 18, 31, 33, 35, 39, 45, 51, 52, 56, 58, 59, 66, 68) HPV testing performed by [facility], [place], [place]. See reference laboratory pion of the EMR for entire report. Clinical Information LMP: Partial hysterectomy 2020 Previous PAP test: 02/22/2018, Unknown findings Material Received ThinPrep-Cervical Copies To: Irene Neumann MD [address] [place] [address], [place] [address] Liz Bailey [address] David Baig [place] [id number] ----- ------- Signed (signature on file) ZARA [place] ([facility]) 10/04/22 0813 ----- ------- END OF REPORT [facility] External Provider LAB CYT OLOGY ORDERABLES Final Result [facility] [address] [place] [address] [phone] * ALBUMIN, RANDOM URINE W/CREATININE (04/05/2020 9:55 AM EST) Microalbumin Urine 0.4 See Note: mg/dL [facility] Comment: Reference Range: Reference Range Not established Microalb/Creat Ratio 4 <30 mcg/mg [facility] Comment: The ADA defines abnormalities in albumin excretion as follows: Category Result (mcg/mg creatinine) Normal <30 Microalbuminuria 30-299 Clinical albuminuria > OR = 300 The ADA recommends that at least two of three specimens collected within a 3-6 month period be abnormal before considering a patient to be within a diagnostic category. Creatinine, Urine 96 20 - 275 mg/dL [facility] 04/05/2020 9:55 AM EST us Irene Caldwell MD LAB URINE ORDERABLES Final Result Performing Organization Address [facility] Co de Phone Number [facility] [address] [place] [address], * HPV mRNA E6/E7 (02/22/2018 2:56 PM EST) HPV mRNA E6/E7 Not Detected NOT DETECTED [facility] Comment: This test was performed using the APTIMA(R) HPV Assay ([employer] This assay detects E6/E7 viral messenger RNA (mRNA) from 14 high-risk HPV types (16,18,31,33,35,39,45,51, 52,56,58,59,66,68). For additional information please refer to: http://education.DineroTaxi/faq/NKU266x6 (This link is being provided for informational/ educational purposes only.) The analytical performance characteristics of this assay have been determined by [facility] [place], [place]. The modifications have not been cleared or approved by the FDA. This assay has been validated pursuant to the CLIA regulations and is used for clinical purposes. Test Performed by [facility], [facility], [address] [place] [address] Luis Hess M.D., Ph.D., Director of Laboratories , CLIA [id number] Please note: Effective 11/22/2015, HPV testing will be performed using [employer]'s APTIMA test which targets mRNA. Detecting mRNA instead of DNA, as in older methods, offers significant improvements in specificity. 02/22/2018 2:56 PM EST us Irene Caldwell MD HISTORICAL/NON ORDERA BLE LABS Final Result Performing Organization Address [facility] Co de Phone Number [facility] [address] [place] [address], [place] * DIGITAL BILATERAL SCREEN 1 (01/15/2018 7:10 PM EST) Anatomical Region Laterality Modality Breast Bilateral Mammography 01/15/2018 7:10 PM EST Narrative 01/15/2018 7:13 PM EST Refer to the Notes tab for result details [facility] Procedure: DIGITAL BILATERAL SCREEN 1 Procedure Note Provider, MD [place] - 06/03/2022 Refer to the Notes tab for result details [facility] Procedure: DIGITAL BILATERAL SCREEN 1 Irene Cladwell MD IMG BI PROCEDURES Fin al Result from Last 3 Months or Most Recently Relevant to Health Maintenance Insurance HSN PARTIAL [facility] 3 DENTAL - HSN PARTIAL (MEDICAID) Care Teams Hand Former Helper Relationship Specialty Start Date End Date Irene Neumann MD [address] [place] [phone] PCP - General Family Medicine 11/21/17
--- OUTSIDE RECORDS SUMMARY | 2024-12-31 13:32 | XMS_ITS | Encounter Summary ---
Author Organization [employer] Address [address] [place] [address] [address] [place] [address] Care Team Providers Care Health Counselor Name Role Phone Irene Neumann MD Primary Care Provide r Encounter Details Date Type Department Care Team (Latest Contact Info) Description 11/08/2021 Abstract [facility] CONVERSIONS Dental, Provider, DDS Social History Tobacco Use Types Packs/Day Years [...] Description 02/25/2025 10:30 AM EST Office Visit [facility] MEDICINE [address] [place] [address] Irene Neumann MD [address] [place] [address] 03/04/2025 10:00 AM EST Office Visit [facility] OPTOMETRY [address] [place] [address] Ly Chavez, OD [address] [place] [address] 03/18/2025 8:00 AM EST Office Visit [facility] ADULT DENTAL [address] [place] [address] Chanell Brady [address] [place] [address] documented as of this encounter Visit Diagnoses Not on filedocumented in this encounter Care Teams Health Counselor Relationship Specialty Start Date End Date Irene Neumann MD [address] [place] [address] PCP - General Family Medicine 11/21/17 documented as of this encounter
--- OUTSIDE RECORDS SUMMARY | 2024-12-31 13:32 | XMS_ITS | Encounter Summary ---
Author Organization [employer] Address [address] [place] [address] [address] [place] [address] Care Team Providers Care Business Line Manager Name Role Phone Irene Neumann MD Primary Care Provide r Reason for Visit * Reason Comments Med Refill Encounter Details Date Type Department Care Team ([facility] Contact Info) Description 10/17/2022 Refill [facility] MEDICINE [address] [place] [address] Areli Drake FNP [address] [place] [address] Other specified hypothyroidism Social History Tobacco Use [...] Upcoming Encounters Date Type Department Care Team ([facility] Contact Info) Description 02/25/2025 10:30 AM EST Office Visit [facility] MEDICINE [address] [place] [phone] Irene Neumann MD [address] [place] [address] 03/04/2025 10:00 AM EST Office Visit [facility] OPTOMETRY [address] [place] [address] Scott, Ly, OD [address] [place] [address] 03/18/2025 8:00 AM EST Office Visit [facility] ADULT DENTAL [address] [place] [address] Caitlyn, Chanell [address] [place] [address] documented as of this encounter Visit Diagnoses Diagnosis Other specified hypothyroidism documented in this encounter Additional Health Concerns Assessment Noted Time PHQ-9 Depression Total Score: 7 09/27/19 23 2:42 PM EDT documented as of this encounter Care Teams Business Line Manager Relationship Specialty Start Date End Date Irene Neumann MD [address] [place] [address] PCP - General Family Medicine 11/21/17 documented as of this encounter
--- OUTSIDE RECORDS SUMMARY | 2024-12-31 13:32 | XMS_ITS | Encounter Summary ---
Author Organization [employer] Address [address] [place] [address] [address] [place] [address] Care Team Providers Care Armature Winder Helper Repair Name Role Phone Irene Neumann MD Primary Care Provide r Encounter Details Date Type Department Care Team (Latest Contact Info) Description 06/16/2020 Abstract [facility] CONVERSIONS Dental, Provider, DDS Social History Tobacco [...] Description 02/25/2025 10:30 AM EST Office Visit [facility] MEDICINE [address] [place] [address] Irene Neumann MD [address] [place] [address] 03/04/2025 10:00 AM EST Office Visit [facility] OPTOMETRY [address] [place] [address] Ly Chavez, OD [address] [place] [address] 03/18/2025 8:00 AM EST Office Visit [facility] ADULT DENTAL [address] [place] [address] Chanell Brady [address] [place] [address] documented as of this encounter Visit Diagnoses Not on filedocumented in this encounter Care Teams Armature Winder Helper Repair Relationship Specialty Start Date End Date Irene Neumann MD [address] [place] [address] PCP - General Family Medicine 11/21/17 documented as of this encounter
== END 2024-12-31 10:37 | disposition home or self-care (01) ==
LOC: HO.US 10:36
PROVIDERS: PCP Internal Medicine; Visit Provider Internal Medicine
DX: R79.89 Other specified abnormal findings of blood chemistry (principal); K76.0 Fatty (change of) liver, not elsewhere classified
CPT/HCPCS: 76700; 76981

== ENCOUNTER → 2024-12-31 10:40 | Outpatient (BNV) | payer OTHER, SELFPAY | PROVIDERS: PCP Internal Medicine; Visit Provider Radiology Diagnostic Radiology | DX: N20.0 Calculus of kidney (principal); D35.00 Benign neoplasm of unspecified adrenal gland; K76.89 Other specified diseases of liver | CPT/HCPCS: 76700 ==